=== PATIENT | male | born 1975 | race Caucasian/White ===

== ENCOUNTER 2021-02-27 10:30 | Emergency (ER) | payer BC, SELFPAY ==
[~2021-02-27] VITALS: Ht 182.9 cm; Wt 99.8 kg
[2021-02-27 10:30] VITALS: BP_SYST 134
--- NOTE | 2021-02-27 10:30 | NUR ---
BROUGHT BACK TO OUTSIDE TRIAGE TENT, TRIAGED AND I WILL ASSUME CARE.
--- NOTE | 2021-02-27 10:40 | NUR ---
PT STATES HE WAS POSITIVE FOR COVID ON 02/15, HAS FELT GOOD ON AND OFF SINCE, BUT TODAY WITH INCREASED HEADACHE, +CONGESTION, WEAKNESS, HOT INSIDES. PT IS UNVACCINATED.
--- NOTE | 2021-02-27 11:03 | NUR ---
DR KO AT BEDSIDE FOR EVALUATION
[2021-02-27 11:33] LABS: BASOPHILS % (AUTO) 0.2 % (0.0-2.0); EOSINOPHILS % (AUTO) 0.1 % (0.0-4.0); HEMATOCRIT 40.4 % (36-54); LYMPHOCYTES # (AUTO) 0.9 K/uL (1.0-5.5); LYMPHOCYTES % (AUTO) 15.6 % (20.5-51.5); MEAN CORPUSCULAR HEMOGLOBIN 30 pg (27-31); MEAN CORPUSCULAR HGB CONC 35 % (32-36); MEAN CORPUSCULAR VOLUME 87 fL (79.0-98.0); MONOCYTES # (AUTO) 0.7 K/uL (0.0-1.0); MONOCYTES % (AUTO) 12.2 % (1.7-9.3); NEUTROPHILS # (AUTO) 4.2 K/uL (1.8-7.7); NEUTROPHILS % (AUTO) 71.9 % (40.0-70.0); PLATELET COUNT (AUTO) 220 K/uL (130-430); RED BLOOD CELL COUNT(AUTO) 4.63 MIL/uL (4.2-6.2); RED CELL DISTRIBUTION WIDTH 13.2 % (9.0-15.0); WHITE BLOOD COUNT (AUTO) 5.8 K/uL (4.8-10.8)
[2021-02-27 11:46] LABS: CALCIUM 8.7 mg/dL (8.4-11.0); CREATININE 1.06 mg/dL (0.55-1.30)
[2021-02-27 11:58] LABS: ALBUMIN 3.1 g/dL (3.4-4.8); TOTAL BILIRUBIN 0.3 mg/dL (0.0-1.0)
--- NOTE | 2021-02-27 12:10 | NUR ---
DR KO OUT TO TENT TO SPEAK WITH PT. AWAITING DISCHARGE ORDERS
[2021-02-27] MEDS ORDERED: ZIT250 PO (12:13)
[2021-02-27] MEDS ORDERED: PRED50TA PO (12:16)
[2021-02-27] MEDS ORDERED: ALBMDI INH (12:16)
--- NOTE | 2021-02-27 12:43 | NUR ---
Patient given written and verbal discharge instructions and verbalizes understanding. ER MD discussed with patient the results and treatment provided. Patient in stable condition. ID arm band removed. Rx of ALBUTEROL, PREDNISONE, AZITHROMYCIN given. Patient educated on pain management and to follow up with PMD. Pain Scale 0/10. Opportunity for questions provided and answered. Medication side effect fact sheet provided.
== END 2021-02-27 12:43 | disposition home or self-care (01) ==
LOC: SED 10:30
DX: U07.1 COVID-19 (principal); J12.89 Other viral pneumonia
CPT/HCPCS: 36415; 71045; 80053; 85025; 99284